=== PATIENT | female | born 1990 | race Caucasian/White ===

== ENCOUNTER 2021-09-25 21:09 | Emergency (ER) | payer SELFPAY ==
[~2021-09-25] VITALS: Ht 154.9 cm; Wt 65.3 kg
--- NOTE | 2021-09-25 21:30 | NUR ---
Patient came in to the ER with , , +twin , states at 15 weeks AOG presents concern about her abnormal ultrasound. Patient states that she had ultrasound earlier today where she was told that her was nonviable she states possible "mass", unable to tell exactly the right word. Patient has no abdominal pain, no vaginal bleed/discharge. Patien states she has all the normal signs and symptoms of and she wants second opinion regarding her concern. No recent trauma to the abdomen, states she feels some "movement in her tummy" at times. Patient respirations even unlabored, not in any distress. Patient ambulates with steady gait. Awaiting ER MD to evaluate and treat.
[2021-09-25 21:49] VITALS: BP_SYST 124
--- NOTE | 2021-09-25 21:50 | NUR ---
Patient triaged and placed in waiting room. VSS and patient appears in no acute distress at this time. Accompanied by , awaiting available bed, and MD notified of need for MSE.
[2021-09-25 23:51] LABS: CALCIUM 8.2 mg/dL (8.4-11.0); CREATININE 0.54 mg/dL (0.55-1.30); POTASSIUM 3.5 mmol/L (3.5-5.1)
[2021-09-25 23:58] LABS: BASOPHILS # (AUTO) 0.1 K/uL (0.0-0.2); EOSINOPHILS % (AUTO) 0.7 % (0.0-4.0); HEMATOCRIT 34.4 % (36-48); HEMOGLOBIN 11.9 g/dL (12.0-16.0); LYMPHOCYTES # (AUTO) 1.9 K/uL (1.0-5.5); LYMPHOCYTES % (AUTO) 27.7 % (20.5-51.5); MEAN CORPUSCULAR HEMOGLOBIN 31 pg (27-31); MEAN CORPUSCULAR HGB CONC 35 % (32-36); MEAN CORPUSCULAR VOLUME 88 fL (79.0-98.0); MONOCYTES # (AUTO) 0.9 K/uL (0.0-1.0); MONOCYTES % (AUTO) 12.7 % (1.7-9.3); NEUTROPHILS % (AUTO) 57.9 % (40.0-70.0); PLATELET COUNT (AUTO) 315 K/uL (130-430); RED BLOOD CELL COUNT(AUTO) 3.89 MIL/uL (4.2-6.2); RED CELL DISTRIBUTION WIDTH 13.6 % (9.0-15.0); WHITE BLOOD COUNT (AUTO) 6.9 K/uL (4.8-10.8)
--- NOTE | 2021-09-26 | NUR ---
Patient resting quietlyin waiting room with . No acute distress noted. Awaiting lab/diagnostics results
[2021-09-26 00:17] LABS: ALBUMIN 2.7 g/dL (3.4-4.8); THYROID STIMULATING HORMONE 4.59 uIu/mL (0.36-3.74); TOTAL BILIRUBIN 0.2 mg/dL (0.0-1.0)
[2021-09-26] MEDS ORDERED: NACL 0.9% 1,000 ML IV ONE (00:30)
[2021-09-26 01:10] VITALS: BP_SYST 125
--- NOTE | 2021-09-26 01:10 | NUR ---
Patient given written and verbal discharge instructions and verbalizes understanding. ER MD discussed with patient the results and care provided. Patient in stable condition. ID arm band removed. No Rx given. Patient educated on pain management and to follow up with PMD. Pain Scale 0/10. Opportunity for questions provided and answered.
== END 2021-09-26 01:10 | disposition home or self-care (01) ==
LOC: SED 21:09
DX: O26.892 Other specified pregnancy related conditions, second trimester (principal); O02.0 Blighted ovum and nonhydatidiform mole; Z3A.15 15 weeks gestation of pregnancy
CPT/HCPCS: 36415; 76805-TC; 80053; 81002; 81025; 84443; 84702; 85025; 99284